=== PATIENT | female | born 1955 | race Caucasian/White ===

== ENCOUNTER 2017-10-16 10:20 | Emergency (ER) | payer MEDICARE | END 2017-10-16 11:55 | disposition home or self-care (01) | LOC: M ED 10:20 | DX: R10.2 Pelvic and perineal pain (principal); M54.5 Low back pain; M25.562 Pain in left knee; G89.29 Other chronic pain; E03.9 Hypothyroidism, unspecified; Z94.4 Liver transplant status; F33.9 Major depressive disorder, recurrent, unspecified; K58.9 Irritable bowel syndrome, unspecified; F41.9 Anxiety disorder, unspecified; G62.9 Polyneuropathy, unspecified; M16.0 Bilateral primary osteoarthritis of hip; M17.10 Unilateral primary osteoarthritis, unspecified knee; M81.0 Age-related osteoporosis without current pathological fracture; R01.1 Cardiac murmur, unspecified; F17.200 Nicotine dependence, unspecified, uncomplicated; Z98.890 Other specified postprocedural states; Z79.890 Hormone replacement therapy; Z79.899 Other long term (current) drug therapy | CPT/HCPCS: 99282 ==

== ENCOUNTER 2017-11-06 21:09 | Emergency (ER) | payer MEDICARE ==
[2017-11-06] MEDS: oxyCODONE 5MG TAB PO (22:31)
== END 2017-11-07 | disposition home or self-care (01) ==
LOC: M ED 11-07
DX: M16.0 Bilateral primary osteoarthritis of hip (principal); G89.29 Other chronic pain; M54.9 Dorsalgia, unspecified; M51.9 Unspecified thoracic, thoracolumbar and lumbosacral intervertebral disc disorder; E07.9 Disorder of thyroid, unspecified; F17.200 Nicotine dependence, unspecified, uncomplicated; Z79.899 Other long term (current) drug therapy; Z94.4 Liver transplant status
CPT/HCPCS: 73502

== ENCOUNTER 2017-11-11 20:53 | Emergency (ER) | payer MEDICARE | END 2017-11-11 23:08 | disposition home or self-care (01) | LOC: M ED 20:53 | DX: G89.29 Other chronic pain (principal); K58.9 Irritable bowel syndrome, unspecified; F41.9 Anxiety disorder, unspecified; N18.9 Chronic kidney disease, unspecified; M81.0 Age-related osteoporosis without current pathological fracture; Z79.899 Other long term (current) drug therapy | CPT/HCPCS: 99282 ==

== ENCOUNTER 2017-11-28 01:59 | Emergency (ER) | payer MEDICARE ==
[2017-11-28] MEDS: HYDROmorphone HCL 1 MG/ML SYRINGE (J1170) IM (04:53)
== END 2017-11-28 05:19 | disposition home or self-care (01) ==
LOC: M ED 01:59
DX: M54.9 Dorsalgia, unspecified (principal); M25.551 Pain in right hip; G89.29 Other chronic pain; M81.0 Age-related osteoporosis without current pathological fracture; F33.9 Major depressive disorder, recurrent, unspecified; F17.200 Nicotine dependence, unspecified, uncomplicated; H54.8 Legal blindness, as defined in USA; Z98.890 Other specified postprocedural states; Z86.69 Personal history of other diseases of the nervous system and sense organs; Z94.4 Liver transplant status; Z87.448 Personal history of other diseases of urinary system; Z79.899 Other long term (current) drug therapy; Z79.890 Hormone replacement therapy
CPT/HCPCS: J1170

== ENCOUNTER 2017-11-28 09:12 | Emergency (ER) | payer MEDICARE | END 2017-11-28 09:50 | disposition home or self-care (01) | LOC: M ED 09:12 | DX: Z76.0 Encounter for issue of repeat prescription (principal); M25.551 Pain in right hip; M54.9 Dorsalgia, unspecified; G89.29 Other chronic pain; F17.200 Nicotine dependence, unspecified, uncomplicated; Z79.899 Other long term (current) drug therapy; Z79.890 Hormone replacement therapy; Z98.890 Other specified postprocedural states ==

== ENCOUNTER 2017-12-02 07:08 | Emergency (ER) | payer MEDICARE ==
[2017-12-02] MEDS: ONDANSETRON 4 MG ORAL DISINTEGRATING TAB (Q0162 PER 1MG) PO (07:51)
[2017-12-02] MEDS: oxyCODONE 5MG TAB PO ×2 (07:53→10:52)
[2017-12-02 09:39] LABS: BASO % 0.9 % (0.0-1.0); EOS # 0.1 10^3/uL (0.0-0.50); EOS % 1.8 % (0.0-3.0); HEMATOCRIT 32.9 % (36.0-47.0); HEMOGLOBIN 11.2 g/dl (12.0-15.5); LYMPH # 0.7 10^3/uL (1.5-4.5); LYMPH % 21.4 % (24.0-44.0); MEAN CORPUSCULAR VOLUME 79.3 fl (80.0-96.0); MONO # 0.3 10^3/uL (0.0-0.8); MONO % 9.5 % (0.0-5.0); NEUTROPHILS # 2.2 10^3/uL (1.8-7.7); NEUTROPHILS % 66.4 % (36.0-66.0); PLATELET COUNT, AUTOMATED 102 10^3/uL (150-450); RED BLOOD COUNT 4.15 10^6/uL (4.00-5.40); RED CELL DISTRIBUTION WIDTH 14.4 % (11.5-14.5); WHITE BLOOD COUNT 3.3 10^3/uL (4.0-10.0)
[2017-12-02 10:02] LABS: ALBUMIN/GLOBULIN RATIO 0.77 (1.00-1.93); ALKALINE PHOSPHATASE 90 U/L (45-117); ALT/SGPT 17 U/L (12-78); ANION GAP 7 MEQ/L (8-16); AST/SGOT 17 U/L (7-37); BILIRUBIN,DIRECT < 0.1 MG/DL (0.0-0.2); BILIRUBIN,TOTAL 0.2 MG/DL (0.2-1.0); BLOOD UREA NITROGEN 24 MG/DL (7-18); CALCIUM LEVEL 7.9 MG/DL (8.8-10.2); CARBON DIOXIDE LEVEL 24 MEQ/L (21-32); CHLORIDE LEVEL 117 MEQ/L (98-107); CREATININE FOR GFR 1.18 MG/DL (0.55-1.30); GLOMERULAR FILTRATION RATE 49.7 (>45); GLUCOSE, FASTING 92 MG/DL (70-100); SODIUM LEVEL 148 MEQ/L (136-145); TOTAL PROTEIN 6.9 GM/DL (6.4-8.2)
== END 2017-12-02 11:00 | disposition home or self-care (01) ==
LOC: M ED 07:08
DX: F11.23 Opioid dependence with withdrawal (principal); R19.7 Diarrhea, unspecified; R11.0 Nausea; Z87.820 Personal history of traumatic brain injury; H54.8 Legal blindness, as defined in USA; K58.9 Irritable bowel syndrome, unspecified; Z72.0 Tobacco use; Z94.4 Liver transplant status; N18.2 Chronic kidney disease, stage 2 (mild); M54.9 Dorsalgia, unspecified; M81.0 Age-related osteoporosis without current pathological fracture; E03.9 Hypothyroidism, unspecified; F32.9 Major depressive disorder, single episode, unspecified; Z79.899 Other long term (current) drug therapy
CPT/HCPCS: Q0162

== ENCOUNTER → 2017-12-02 | Outpatient (CLI) | payer MEDICARE | LOC: M PAIN 15:30 | DX: M25.551 Pain in right hip (principal); M25.552 Pain in left hip; M46.1 Sacroiliitis, not elsewhere classified; M06.9 Rheumatoid arthritis, unspecified; M16.0 Bilateral primary osteoarthritis of hip; M17.0 Bilateral primary osteoarthritis of knee; N18.2 Chronic kidney disease, stage 2 (mild); K76.9 Liver disease, unspecified; E03.9 Hypothyroidism, unspecified; F17.210 Nicotine dependence, cigarettes, uncomplicated; F41.9 Anxiety disorder, unspecified; Z79.899 Other long term (current) drug therapy; Z94.4 Liver transplant status | CPT/HCPCS: G0463 ==

== ENCOUNTER 2017-12-09 01:20 | Emergency (ER) | payer MEDICARE ==
[2017-12-09] MEDS ORDERED: ACETAMINOPHEN TAB 650MG DOSE (2X325MG) PO ×2 (02:30)
[2017-12-09] MEDS ORDERED: traMADol 50 MG TAB As Ordered ×2 (02:53)
[2017-12-09] MEDS: traMADol 50 MG TAB PO ×2 (03:09)
== END 2017-12-09 03:10 | disposition home or self-care (01) ==
LOC: M ED 01:20
DX: J40 Bronchitis, not specified as acute or chronic (principal); E03.9 Hypothyroidism, unspecified; Z94.4 Liver transplant status; F17.200 Nicotine dependence, unspecified, uncomplicated; Z79.899 Other long term (current) drug therapy
CPT/HCPCS: 71046

== ENCOUNTER → 2017-12-09 | Outpatient (CLI) | payer MEDICARE | LOC: M PAIN 13:15 | DX: M25.551 Pain in right hip (principal); M25.552 Pain in left hip; N18.2 Chronic kidney disease, stage 2 (mild); F41.9 Anxiety disorder, unspecified; F17.210 Nicotine dependence, cigarettes, uncomplicated; M06.9 Rheumatoid arthritis, unspecified; M16.0 Bilateral primary osteoarthritis of hip; Z79.891 Long term (current) use of opiate analgesic; Z79.899 Other long term (current) drug therapy; Z94.4 Liver transplant status | CPT/HCPCS: G0463 ==

== ENCOUNTER → 2017-12-13 | Outpatient (CLI) | payer MEDICARE ==
[2017-12-13 17:21] LABS: BASO # 0.1 10^3/uL (0.0-0.2); BASO % 0.9 % (0.0-1.0); EOS # 0.2 10^3/uL (0.0-0.50); EOS % 2.6 % (0.0-3.0); HEMOGLOBIN 12.2 g/dl (12.0-15.5); IMMATURE GRANULOCYTE % 0.2 % (0-3.0); LYMPH # 1.7 10^3/uL (1.5-4.5); LYMPH % 30.5 % (24.0-44.0); MEAN CORPUSCULAR HEMOGLOBIN 27.1 pg (27.0-33.0); MEAN CORPUSCULAR HGB CONC 33.9 g/dl (32.0-36.5); MEAN CORPUSCULAR VOLUME 79.8 fl (80.0-96.0); MONO # 0.5 10^3/uL (0.0-0.8); MONO % 8.1 % (0.0-5.0); NEUTROPHILS # 3.3 10^3/uL (1.8-7.7); NEUTROPHILS % 57.7 % (36.0-66.0); PLATELET COUNT, AUTOMATED 133 10^3/uL (150-450); RED BLOOD COUNT 4.51 10^6/uL (4.00-5.40); RED CELL DISTRIBUTION WIDTH 14.6 % (11.5-14.5); RETIC HEMOGLOBIN EQUIVALENT 31.4 pg (24-36); WHITE BLOOD COUNT 5.7 10^3/uL (4.0-10.0)
[2017-12-13 17:33] LABS: INR 0.98; PARTIAL THROMBOPLASTIN TIME 29.8 SECONDS (25.4-37.6); PROTHROMBIN TIME 13.1 SECONDS (12.1-14.4)
[2017-12-13 17:45] LABS: LDH LACTATE DEHYDROGENASE 175 U/L (84-246)
[2017-12-13 17:45] LABS: FREE T4 0.75 NG/DL (0.76-1.46); URIC ACID 4.8 MG/DL (2.6-6.0)
[2017-12-14 11:05] LABS: FOLATE 16.7 NG/ML (>5.4); VITAMIN B12 LEVEL 699 PG/ML (247-911)
== END ==
LOC: M LAB 15:35
DX: E03.9 Hypothyroidism, unspecified (principal)
CPT/HCPCS: 82746

== ENCOUNTER → 2017-12-13 | Outpatient (CLI) | payer MEDICARE | LOC: M RAD 17:00 | DX: M16.0 Bilateral primary osteoarthritis of hip (principal) | CPT/HCPCS: 72192 ==

== ENCOUNTER → 2017-12-16 | Outpatient (CLI) | payer MEDICARE | LOC: M PAIN 12:45 | DX: M25.551 Pain in right hip (principal); M25.552 Pain in left hip; G89.29 Other chronic pain; N18.2 Chronic kidney disease, stage 2 (mild); M06.9 Rheumatoid arthritis, unspecified; M16.0 Bilateral primary osteoarthritis of hip; M17.0 Bilateral primary osteoarthritis of knee; F41.9 Anxiety disorder, unspecified; F17.210 Nicotine dependence, cigarettes, uncomplicated; Z79.899 Other long term (current) drug therapy; Z94.4 Liver transplant status | CPT/HCPCS: G0463 ==

== ENCOUNTER → 2017-12-23 | Outpatient (CLI) | payer MEDICARE | LOC: M PAIN 11:45 | DX: M25.551 Pain in right hip (principal); M25.552 Pain in left hip; F41.9 Anxiety disorder, unspecified; Z79.891 Long term (current) use of opiate analgesic; Z79.899 Other long term (current) drug therapy; Z94.4 Liver transplant status | CPT/HCPCS: G0463 ==

== ENCOUNTER → 2018-02-20 | Outpatient (CLI) | payer MEDICARE | LOC: M PAIN 11:15 | DX: G89.29 Other chronic pain (principal); M25.551 Pain in right hip; M25.562 Pain in left knee; M25.561 Pain in right knee; M06.9 Rheumatoid arthritis, unspecified; M16.0 Bilateral primary osteoarthritis of hip; M17.0 Bilateral primary osteoarthritis of knee; N18.3 Chronic kidney disease, stage 3 (moderate); F17.210 Nicotine dependence, cigarettes, uncomplicated; F41.9 Anxiety disorder, unspecified; Z94.4 Liver transplant status; Z79.891 Long term (current) use of opiate analgesic; Z79.899 Other long term (current) drug therapy | CPT/HCPCS: G0463 ==

== ENCOUNTER 2018-03-07 07:56 | Emergency (ER) | payer MEDICARE, MEDICAID ==
[2018-03-07] MEDS: GABAPENTIN 300 MG CAP PO (09:59)
[2018-03-07] MEDS: MORPHINE 4 MG/ML 1ML VIAL/SYRINGE (J2270) IM (10:01)
== END 2018-03-07 12:18 | disposition home or self-care (01) ==
LOC: M ED 07:56
DX: G89.29 Other chronic pain (principal); M79.604 Pain in right leg; M79.605 Pain in left leg; M16.11 Unilateral primary osteoarthritis, right hip; M16.12 Unilateral primary osteoarthritis, left hip; W19.XXXA Unspecified fall, initial encounter; Y92.9 Unspecified place or not applicable; K58.9 Irritable bowel syndrome, unspecified; F32.9 Major depressive disorder, single episode, unspecified; Z94.4 Liver transplant status; Z72.0 Tobacco use; Z79.899 Other long term (current) drug therapy; Z88.8 Allergy status to other drugs, medicaments and biological substances
CPT/HCPCS: J2270

== ENCOUNTER 2018-03-08 19:56 | Emergency (ER) | payer MEDICARE ==
[2018-03-08] MEDS: MORPHINE 10 MG/ML 1ML VIAL (J2270) IM (22:27)
== END 2018-03-08 22:56 | disposition home or self-care (01) ==
LOC: M ED 19:56
DX: G89.29 Other chronic pain (principal); R20.2 Paresthesia of skin; R60.0 Localized edema; N39.0 Urinary tract infection, site not specified; N18.2 Chronic kidney disease, stage 2 (mild); K58.9 Irritable bowel syndrome, unspecified; Z87.828 Personal history of other (healed) physical injury and trauma; Z94.4 Liver transplant status; F17.200 Nicotine dependence, unspecified, uncomplicated; Z88.8 Allergy status to other drugs, medicaments and biological substances; Z79.899 Other long term (current) drug therapy; Z79.2 Long term (current) use of antibiotics
CPT/HCPCS: J2270

== ENCOUNTER → 2018-03-09 | Outpatient (CLI) | payer MEDICARE, MEDICAID | LOC: M PAIN 09:15 | DX: M25.551 Pain in right hip (principal); G89.29 Other chronic pain; M06.9 Rheumatoid arthritis, unspecified; N18.2 Chronic kidney disease, stage 2 (mild); F41.9 Anxiety disorder, unspecified; F17.210 Nicotine dependence, cigarettes, uncomplicated; Z79.891 Long term (current) use of opiate analgesic; Z79.899 Other long term (current) drug therapy; Z94.4 Liver transplant status | CPT/HCPCS: G0463 ==

== ENCOUNTER → 2018-03-28 | Outpatient (CLI) | payer MEDICARE, MEDICAID | LOC: M PAIN 14:30 | DX: G89.29 Other chronic pain (principal); M25.551 Pain in right hip; F17.210 Nicotine dependence, cigarettes, uncomplicated; M06.9 Rheumatoid arthritis, unspecified; M16.0 Bilateral primary osteoarthritis of hip; M17.0 Bilateral primary osteoarthritis of knee; N18.2 Chronic kidney disease, stage 2 (mild); M54.5 Low back pain; F41.9 Anxiety disorder, unspecified; Z79.891 Long term (current) use of opiate analgesic; Z94.4 Liver transplant status; Z79.899 Other long term (current) drug therapy | CPT/HCPCS: G0463 ==